=== PATIENT | male | born 1955 | race Caucasian/White ===

== ENCOUNTER → 2017-09-26 | Outpatient (CLI) | payer OTHER ==
[~2017-09-26] MED LIST: AVINZA120 MG PO; FIBER PO; FISH OIL PO; GLIMEPIRIDE4 MG PO; HYDROCHLOROTHIAZIDE PO; LEVEMIR FL100 UNIT/1 SC; LISINOPRIL PO; LO-DOSE ASPIRIN81 M1 PO; LOVASTATIN PO; METFORMIN HCL1000 MG PO; MULTIVITAMIN PO; SKELAXIN800 MG PO; STOOL SOFTENER PO; TIZANIDINE PO; TRAMADOL PO
== END | disposition home or self-care (01) ==
LOC: RAD 13:40 → EDSTATUS 14:00
DX: R94.31 Abnormal electrocardiogram [ECG] [EKG] (principal)
CPT/HCPCS: 75571; 75574